=== PATIENT | male | born 1980 | race African-American/Black ===

== ENCOUNTER 2017-02-15 11:24 | Emergency (ER) | payer SELFPAY ==
[2017-02-15 11:29] VITALS: BP 120/68; BMI 25.0
[2017-02-15] MEDS ORDERED: DUONEB 0.5 MG/3 MG ONE (11:32)
[2017-02-15] MEDS ORDERED: DUONEB 0.5 MG/3 MG NEB ONE (11:35)
[2017-02-15] MEDS ORDERED: PREDNISONE TAB 20 MG PO ONE ×2 (11:46→12:13)
--- NOTE | 2017-02-15 11:47 | DR.GENAD ---
HPI - PCP Primary Care Physician: nfd - HPI Comment HPI Comment: PATIENT COUGHING, PRODUCTIVE YELLOW SPUTUM FOR FEW DAYS WITH WHEEZING. WORSE TODAY AT WORK. NO FEVER. HAVING CHEST TIGHTNESS ALSO. - Complaint/Symptoms Chief Complaint Doctors Comments: SOB, CHEST PAIN FOR FEW DAYS. Chief Complaint:: patient stated he was at work at [employer] and his asthma started acting up. - Nurses notes reviewed Nurses Notes Review: Yes - Source History Provided: Patient - Mode of Arrival Mode of Arrival: Ambulatory - Timing Onset of Chief Complaint: 02/15/17 Came on: Suddenly - Duration Duration: Constant Duration: Days - Severity Severity: Moderate PMH - PMH Past Medical History: Yes Past Medical History: Asthma Past Surgical History: Yes Surgical History: Ortho Surgery - Family History History of Family Medical Conditions: No - Social History Does patient currently use any type of tobacco product: Yes Have you used tobacco products in the last 12 months: Yes Type of Tobacco Use: Cigarettes How many years tobacco product used: 10 Does any household member use tobacco: Yes Alcohol Use: None Do you use any recreational Drugs:: No Lives With: Family Lives Where: Home - infectious screening In the last 2 months have you had wt loss of >10#?: NO Have you had fever, night sweats or hemotysis?: No Have you traveled outside the country in the last 6 months?: No Isolation: Standard ROS - Review of Systems Constitutional: Fatigue Eyes: No Symptoms Reported. negative: Eye Pain, Discharge ENTM: Nose Congestion. negative: Ear Pain, Nose Discharge, Throat Pain Respiratoy: Productive Cough (YELLOW SPUTUM.), Short of Breath, Wheezing. negative: Hemoptysis Cardiovascular: Chest Pain Gastrointestinal/Abdominal: No Symptoms Reported Genitourinary: No Symptoms Reported Neurological: No Symptoms Reported Musculoskeletal: No Symptoms Reported Integumentary: No Symptoms Reported Hematologic/Lymphatic: No Symptoms Reported Endocrine: No Symptoms Reported All Other Systems: Reviewed and Negative PE - Vital Signs Vitals: Temperature 98.6 F Pulse Rate 87 Respiratory Rate 16 Blood Pressure 120/68 O2 Sat by Pulse Oximetry 98 - General Limitations: No Limitations General Appearance: Alert - Head Head Exam: Normal Inspection - Eyes Eye exam: Normal Appearance - ENT ENT Exam: Normal External Ear Exam External Ear Exam: Normal External Inspection TM/Canal Exam: Bilateral Normal Nose Exam: Normal Nose Exam Mouth Exam: Normal Inspection Throat Exam: Normal Inspection - Neck Neck Exam: Normal Inspection - Chest Chest Inspection: Symmetric Chest Wall Rise - Respiratory Respiratory Exam: Respiratory Distress Respiratory Exam: Bilateral Wheezing, Bilateral Rhonchi, Upper Wheezing, Lower Wheezing, Lower Rhonchi - Cardiovascular Cardiovascular Exam: Regular Rate, Normal Rhythm, Normal Heart Sounds - Abdominal Exam Abdominal Exam: Normal Bowel Sounds, Soft. negative: Tenderness - Extremities Extremities Exam: Normal Inspection - Back Back Exam: Normal Inspection - Neurologic Neurological Exam: Alert, Oriented X3 - Psychiatric Psychiatric Exam: Normal Affect, Normal Mood - Skin Skin Exam: Normal Color MDM - Differential Diagnosis Differential Diagnosis: ASTHMA, BRONCHITIS, PNEUMONIA Course - Treatment Treatment: SEE ORDERS - Education/Counseling Education/Counseling: Patient, Education Educated On: Treatment, Diagnosis, Needs for Follow Up ROR - XRAY XRAY Interpreted by: Radiologist XRAY Findings: REPORT DISCUSS WITH PATIENT. - Diagnosis Discharge Problem: Bronchitis Asthma attack Qualifiers: Asthma severity: moderate Asthma persistence: unspecified Qualified Code(s): J45.901 - Unspecified asthma with (acute) exacerbation - Discharge Plan Condition: Stable Prescriptions: Albuterol Sulfate [Proventil HFA Inhaler 6.7 gm] 2 inh IN Q6H PRN #1 each PRN Reason: Asthma Symptoms Amoxicillin [Amoxil 875 mg] 875 mg PO Q12H #20 tab Methylprednisolone Dosepak 4Mg [MEDROL DOSEPAK (4 mg tab x 21)] 1 machelle PO ONCE # 1 machelle - Follow ups/Referrals Follow ups/Referrals: NFD,None [Primary Care Provider] - 3 days - Instructions Instructions: Acute Bronchitis, [id number], Asthma, Adult, [id number] Additional Instructions: RETURN TO ED IF WORSE.
--- NOTE | 2017-02-15 12:29 | RAD ---
HISTORY: Chest pressure Study: Single view chest Comparison: None Findings: The lungs are clear without consolidation, effusion or pneumothorax. The cardiac and mediastinal con tours are within normal limits. The soft tissues are unremarkable. IMPRESSION: 1. No acute cardiopulmonary abnormality. Reported By:
== END 2017-02-15 12:58 | disposition home or self-care (01) ==
LOC: ER 11:54
DX: J40 Bronchitis, not specified as acute or chronic (principal); J45.901 Unspecified asthma with (acute) exacerbation; Z72.0 Tobacco use
CPT/HCPCS: 71010; 99282; 99283; J7506; J7620

== ENCOUNTER 2017-08-08 13:11 | Emergency (ER) | payer SELFPAY ==
[2017-08-08 13:18] VITALS: BP 137/75; BMI 25.0
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
[2017-08-08] MEDS ORDERED: NS 100 ML IV 100 ML IV ONE (13:43)
--- NOTE | 2017-08-08 14:12 | CT ---
History: Posttraumatic neck and right shoulder pain Study: CT cervical spine without Findings: [address] imaging is performed from above the sella through the upper thoracic region with coronal and sagittal reformatted images submitted as well. There are no previous studies for co mparative purposes. There is mild reversal of the normal cervical lordosis. There are mild degenerati ve changes at the odontoid axial joint with non fusion of the tip of the odontoid. There is mild disc space narrowing and minimal endplate spurring at the C5-6 level. No fracture, bony destructive proce ss or prevertebral soft tissue swelling is identified. Minimal posterior endplate spurring eccentric to the left at the C3-4 level is noted. Impression: Mild arthritic changes of the cervical spine with no evidence of a traumatic injury. Reported By:
--- NOTE | 2017-08-08 14:15 | CT ---
History: Posttraumatic right shoulder and hip pain Study: CT abdomen and pelvis with contrast Findings: [address] imaging is performed from above the diaphragms to below the pubic symphysis during the intravenous administration of 100 mL of Omnipaque 350. Coronal and sagittal reformatted i mages are submitted as well. Lung bases are clear and there are no pleural effusions. The liver and s pleen are normal in size and enhance uniformly. The gallbladder, pancreas, adrenal glands and kidneys appear normal. No masses adenopathy or abnormal fluid collections are identified. Osseous structures appear intact. Impression: Normal CT of the abdomen and pelvis. Reported By:
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
[2017-08-08] MEDS ORDERED: MORPHINE SULFATE INJ 4 MG IVP ONE (14:41)
[2017-08-08] MEDS ORDERED: MORPHINE SULFATE INJ 4 MG ONE (14:44)
--- NOTE | 2017-08-08 14:45 | RAD ---
Exam: Right hip History: Right hip pain Comparison: None Findings: AP and frog-leg lateral views of the right hip were obtained. The right hip is radiographic ally normal with no acute bony abnormality or significant degenerative change seen. Contrast is seen in the ureters and bladder as result of contrast CT performed prior to this exam. Impression: No acute bony abnormality is identified in the right hip. Reported By:
== END 2017-08-08 15:16 | disposition home or self-care (01) ==
LOC: ER 13:22
DX: M47.812 Spondylosis without myelopathy or radiculopathy, cervical region (principal)
CPT/HCPCS: 71260; 72125; 73030; 73501; 74177; 96365; 96367; 96374; 99283; J2270

== ENCOUNTER 2017-08-10 20:09 | Emergency (ER) | payer SELFPAY ==
[2017-08-10 20:13] VITALS: BP 128/79; BMI 25.0
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
== END 2017-08-10 20:56 | disposition home or self-care (01) ==
LOC: ER 20:20
DX: Z04.1 Encounter for examination and observation following transport accident (principal); S22.31XA Fracture of one rib, right side, initial encounter for closed fracture; V03.10XA Pedestrian on foot injured in collision with car, pick-up truck or van in traffic accident, initial encounter
CPT/HCPCS: 99281; 99282